=== PATIENT | male | born 1945 | race Caucasian/White ===

== ENCOUNTER 2018-01-27 13:55 | Observation (INO) | payer MEDICARE, OTHER ==
--- NOTE | 2018-01-27 14:39 | EDM.PDOC ---
ED HPI GENERAL MEDICAL PROBLEM - General Chief Complaint: Medication Administration Stated Complaint: Irregular lab values Time Seen by Provider: 01/27/18 14:29 Source of Information: Reports: Patient History Limitations: Reports: No Limitations - History of Present Illness INITIAL COMMENTS - FREE TEXT/NARRATIVE: Patient is a 72-year-old gentleman who presents to the emergency department this afternoon sent via [facility]. Patient found to have elevated INR of 10, and is currently on Coumadin for lung cancer. Patient states she's had nosebleeds to 2 times a day last several days. However, he denies any bleeding while brushing his teeth, in urine, or in stool. Patient denies any recent fall , headache, vision changes, nausea, vomiting, diarrhea, abdominal pain, syncope , change in Coumadin dosage or new medicine. Onset: Today Severity: Moderate Improves with: Reports: None Worsens with: Reports: None Context: Denies: Trauma Associated Symptoms: Reports: No Other Symptoms - Related Data Allergies Allergy/AdvReac Type Severity Reaction Status Date / Time No Known Drug Allergies Allergy Other Verified 01/27/18 14:11 Home Meds: Home Meds Warfarin [Coumadin] 5 mg PO ASDIRECTED 03/17/17 [History] Levothyroxine 100 mcg PO DAILY 05/13/17 [History] Crizotinib [Xalkori] 250 mg PO BID 01/27/18 [History] Lactulose 30 ml PO Q6HR PRN 01/27/18 [History] Past Medical History - Past Health History Medical/Surgical History: Denies Medical/Surgical History HEENT History: Reports: None Cardiovascular History: Reports: Hypertension Respiratory History: Reports: COPD, PE Gastrointestinal History: Reports: None Endocrine/Metabolic History: Reports: Obesity/BMI 30+ Immunologic History: Reports: Immunosuppression Oncologic (Cancer) History: Reports: Lung - Infectious Disease History Infectious Disease History: Reports: Other (See Below) Other Infectious Disease History: cant remember - Past Surgical History HEENT Surgical History: Reports: Tonsillectomy Cardiovascular Surgical History: Reports: None Respiratory Surgical History: Reports: Other (See Below) Other Respiratory Surgeries/Procedures: 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 bilateral PE Endocrine Surgical History: Reports: None Social & Family History - Family History Cardiac: Reports: None Respiratory: Reports: None - Tobacco Use Smoking Status *Q: Former Smoker Years of Tobacco use: 40 Packs/Tins Daily: 0.5 Used Tobacco, but Quit: Yes Month Tobacco Last Used: April 2016 Second Hand Smoke Exposure: Yes - Caffeine Use Caffeine Use: Reports: Soda Other Caffeine Use: regular soda - Alcohol Use Days Per Week of Alcohol Use: 0 - Recreational Drug Use Recreational Drug Use: No ED ROS GENERAL - Review of Systems Review Of Systems: ROS reveals no pertinent complaints other than HPI. Constitutional: Reports: Fatigue HEENT: Reports: Nosebleed Respiratory: Reports: No Symptoms Cardiovascular: Reports: No Symptoms Endocrine: Reports: No Symptoms GI/Abdominal: Reports: No Symptoms : Reports: No Symptoms Musculoskeletal: Reports: No Symptoms Skin: Reports: No Symptoms Neurological: Reports: No Symptoms Psychiatric: Reports: No Symptoms Hematologic/Lymphatic: Reports: No Symptoms Immunologic: Reports: No Symptoms ED EXAM, GENERAL - Physical Exam Exam: See Below Exam Limited By: No Limitations General Appearance: Alert, WD/WN, No Apparent Distress Eye Exam: Bilateral Eye: Normal Inspection Ears: Normal External Exam, Normal Canal Nose: Normal Inspection, Other (Dry blood left Nare) Throat/Mouth: Normal Inspection, Normal Oropharynx, No Airway Compromise Head: Atraumatic, Normocephalic Neck: Normal Inspection Respiratory/Chest: No Respiratory Distress, Lungs Clear, Normal Breath Sounds Cardiovascular: Regular Rate, Rhythm, No Murmur GI/Abdominal: Normal Bowel Sounds, Soft, Non-Tender, No Organomegaly, No Distention, No Abnormal Bruit, No Mass Back Exam: Normal Inspection. No: CVA Tenderness (L), CVA Tenderness (R) Extremities: Normal Inspection, No Pedal Edema Neurological: Alert, Oriented, CN II-XII Intact, Normal Cognition, No Motor/ Sensory Deficits Psychiatric: Normal Affect, Normal Mood Skin Exam: Warm, Dry, Intact, Normal Color, No Rash Course - Vital Signs Last Recorded V/S: Last Vital Signs Temp 96.9 F 01/27/18 14:10 Pulse 65 01/27/18 14:10 Resp 18 01/27/18 14:10 BP 142/49 H 01/27/18 14:10 Pulse Ox 98 01/27/18 14:10 - Orders/Labs/Meds Orders: Active Orders 24 hr Category Date Time Status CBC WITH AUTO DIFF [HEME] Stat Lab 01/27/18 14:29 Ordered COMPREHENSIVE METABOLIC PN,CMP [CHEM] Stat Lab 01/27/18 14:29 Ordered INR,PT,PROTHROMBIN TIME [COAG] Stat Lab 01/27/18 14:30 Ordered PTT,PARTIAL THROMBOPLSTIN TIME [COAG] Stat Lab 01/27/18 14:30 Ordered UA W/MICROSCOPIC [URIN] Stat Lab 01/27/18 14:29 Ordered - Re-Assessments/Exams Free Text/Narrative Re-Assessment/Exam: 01/27/18 15:24 Patient afebrile, nontoxic appearing, vital signs stable, no current bleeding. Discussed case with Dr. Duran. He will admit inpatient and follow. Departure - Departure Time of Disposition: 15:25 Disposition: Admitted As Inpatient 64 Condition: Fair Clinical Impression: Hypercoagulopathy - Discharge Information Referrals: Kennedy Burk MD [Primary Care Provider] - - My Orders Last 24 Hours: My Active Orders 01/27/18 14:29 CBC WITH AUTO DIFF [HEME] Stat COMPREHENSIVE METABOLIC PN,CMP [CHEM] Stat UA W/MICROSCOPIC [URIN] Stat 01/27/18 14:30 INR,PT,PROTHROMBIN TIME [COAG] Stat PTT,PARTIAL THROMBOPLSTIN TIME [COAG] Stat - Assessment/Plan Last 24 Hours: My Active Orders 01/27/18 14:29 CBC WITH AUTO DIFF [HEME] Stat COMPREHENSIVE METABOLIC PN,CMP [CHEM] Stat UA W/MICROSCOPIC [URIN] Stat 01/27/18 14:30 INR,PT,PROTHROMBIN TIME [COAG] Stat PTT,PARTIAL THROMBOPLSTIN TIME [COAG] Stat Assessment:: Hypercoagulopathy Plan: Admission to Dr. Duran
[2018-01-27] MEDS ORDERED: Lactulose Soln 10 GM/15 ML 30 ML UD Cup PO PRN (18:59)
[2018-01-27] MEDS ORDERED: Lactulose Soln 10 GM/15 ML 30 ML UD Cup PO ONE (19:03)
--- NOTE | 2018-01-27 19:59 | HP ---
PATIENT PROFILE: The patient is a 72-year-old patient from [place], [place]. HISTORY OF PRESENT ILLNESS: This very pleasant patient presented to the emergency room with two episodes of epistaxis. He was evaluated in the emergency room, and he was noted to have an extremely high INR of greater than 10. PTT/PT was greater than 170. APTT was 86.2. The patient has been taking chemotherapy for lung cancer. PAST MEDICAL HISTORY: Includes positive hypertension, headache, fatigue, sinusitis, malignant neoplasm of the lung, chemotherapy-induced neutropenia, bilateral pulmonary embolism, long-term use of anticoagulants and antineoplastic immunotherapy, hypothyroidism, and elevated serum creatinine. HEALTH MAINTENANCE: The patient's last colorectal screening was 1992. Lipid screening was 1982. Influenza vaccine was 08/21/2017. Zoster would be given on 03/14/2018. MEDICATIONS: Include levothyroxine 100 mcg tablet daily, warfarin 5 mg daily, crizotinib (Xalkori) 250 mg two times a day, and lactulose as necessary. ALLERGIES: None known. REVIEW OF SYSTEMS: HEAD: No complaints. EYES: No complaints. EARS: No complaints. NOSE: The patient has had two episodes of epistaxis. THROAT: No complaints. NECK: No complaints. HEART: No complaints. LUNGS: No complaints. ABDOMEN: No complaints. NEUROLOGICAL: No complaints. HEMATOLOGICAL: See present history. PHYSICAL EXAMINATION: GENERAL: Reveals a very pleasant elderly gentleman, in no immediate distress. VITAL SIGNS: His height is 5 feet 10 inches, weight is 228 pounds. Pulse oximetry is 97% saturation, temperature 97.3, oxygen saturation is 99%, and pulse rate is 63, blood pressure is 120/68. HEAD: Negative. EYES: Arcus senilis. EARS, NOSE, THROAT: Normal at this time. NECK: Supple. Full range of motion. No midline swellings. HEART: Stable. Regular rhythm. No thrills. No murmurs. LUNGS: Clinically clear to percussion and auscultation. ABDOMEN: Soft. EXTREMITIES: Normal. NEUROLOGIC: Intact. FINAL DIAGNOSIS: 1. Elevated INR to greater than 10, probably due to elevated liver function tests. 2. Malignant neoplasm of the lung, being treated with chemotherapy. 3. Hypertension, stable. 4. Headache, stable. 5. Fatigue, stable. 6. Chemotherapy-induced neutropenia, stable. 7. History of bilateral pulmonary vein embolism, stable. 8. Long-term use of anticoagulants. 9. Antineoplastic immunotherapy. 10.Hypothyroidism, acquired. 11.Elevated creatinine level. PLAN: Give him p.o. vitamin K 5 mg one dose tonight and repeat the dose in the morning. We will also repeat INR in a.m. The patient's Coumadin will be held. Fall precautions are also being taken point. /[id number]/MODL
[2018-01-27] MEDS ORDERED: Phytonadione 5 MG Tab PO ONE (20:15)
[2018-01-28] MEDS: Phytonadione 5 MG Tab PO ONE ×3 (08:38→08:49)
[2018-01-28] MEDS: Levothyroxine 100 MCG Tab PO SCH (08:38)
[2018-01-28] MEDS: Lactulose Soln 10 GM/15 ML 30 ML UD Cup PO PRN ×2 (13:11→21:56)
--- NOTE | 2018-01-28 16:26 | PCM.PN ---
- General Info Date of Service: 01/28/18 Admission Dx/Problem (Free Text): Patient was admitted from the ED. He had initially had an INR obtained in the clinical setting noting it to be above 10. He reports he is taking Coumadin due to history of PE resulting from a neoplasm lung. reported previous INR 3 weeks ago 2.7. patient states he has been taking Coumadin for 1 1/2 years. As of mid November [facility], oral chemotherapy was added to his medication regime. prior to his admission he reports he has had nosebleeds during the night for the past several nights. He has had two nosebleeds during the night and one this AM. All resolved with direct pressure and cool packs to the neck. He denies bleeding with voiding, having stools or brushing his teeth. He has had no emesis and is unaware of any recent injury. He has had no bruising. Functional Status: Reports: Pain Controlled, Tolerating Diet, Ambulating, Other - Review of Systems General: Reports: No Symptoms HEENT: Reports: Other (nosebleeds x 2 during the night. x1 this AM.). Denies: Ear Pain, Sore Throat Pulmonary: Reports: No Symptoms, Other (history lung cancer/PE.) Cardiovascular: Reports: No Symptoms Gastrointestinal: Reports: No Symptoms Genitourinary: Reports: No Symptoms Musculoskeletal: Reports: No Symptoms Skin: Reports: No Symptoms Neurological: Reports: No Symptoms Psychiatric: Reports: No Symptoms - Patient Data Vitals - Most Recent: Last Vital Signs Temp 98.8 F 01/28/18 15:00 Pulse 61 01/28/18 15:00 Resp 20 01/28/18 15:00 BP 110/61 01/28/18 15:00 Pulse Ox 94 L 01/28/18 15:00 Weight - Most Recent: 228 lb 12.8 oz I&O - Last 24 Hours: Intake & Output 01/28/18 01/28/18 01/28/18 06:59 14:59 22:59 Intake Total 300 720 Output Total 0 750 Balance 300 -30 Lab Results Last 24 Hours: Laboratory Results - last 24 hr 01/28/18 01/28/18 Range/Units 07:43 07:43 PT > 170.0 H (8.9-11.4) SEC INR > 10.0 H* (0.9-1.1) Total Bilirubin 3.2 H (0.2-1.0) mg/dL Direct Bilirubin 1.9 H* (0.0-0.2) mg/dL AST 1600 H (15-37) U/L ALT 2858 H (12-78) U/L Alkaline Phosphatase 146 H (46-116) IU/L Total Protein 6.0 L (6.4-8.2) g/dL Albumin 2.17 L (3.00-4.80) g/dL Med Orders - Current: Current Medications Lactulose (Cephulac) 20 gm PO BID PRN PRN Reason: Constipation Last Admin: 01/28/18 13:11 Dose: 20 gm Levothyroxine Sodium (Synthroid) 100 mcg PO ACBREAKFAST NELA Last Admin: 01/28/18 08:38 Dose: 100 mcg Discontinued Medications Lactulose (Cephulac) 20 gm PO Q6HR PRN PRN Reason: Constipation Lactulose (Cephulac) 20 gm PO ONETIME ONE Stop: 01/27/18 19:04 Last Admin: 01/27/18 20:22 Dose: 20 gm Phytonadione (Aquamephyton) 5 mg PO ONETIME ONE Stop: 01/27/18 18:47 Last Admin: 01/27/18 20:22 Dose: 5 mg Phytonadione (Mephyton) 5 mg PO ONETIME ONE Stop: 01/27/18 20:16 Last Admin: 01/27/18 20:26 Dose: Not Given Phytonadione (Mephyton) 5 mg PO ONETIME ONE Stop: 01/28/18 08:21 Last Admin: 01/28/18 08:49 Dose: Not Given Phytonadione (Aquamephyton) 5 mg PO ONETIME ONE Stop: 01/28/18 08:49 Last Admin: 01/28/18 08:39 Dose: 5 mg Phytonadione (Aquamephyton) 5 mg PO NOW ONE Stop: 01/28/18 12:50 Last Admin: 01/28/18 13:11 Dose: 5 mg - Exam General: Alert, Oriented, Cooperative HEENT: Other (resolving epstaxis with direct pressure and ice to posterior neck) Neck: Supple Lungs: Clear to Auscultation Cardiovascular: Regular Rate, Regular Rhythm GI/Abdominal Exam: Normal Bowel Sounds, Soft, Non-Tender (Male) Exam: No Hernia, Normal Inspection, Normal Prostate, Circumcised Back Exam: Normal Inspection, Full Range of Motion Extremities: Non-Tender, No Pedal Edema Skin: Warm, Dry Wound/Incisions: Healing Well Neurological: No New Focal Deficit Psy/Mental Status: Alert, Normal Affect, Normal Mood - Problem List Review Problem List Initiated/Reviewed/Updated: Yes - My Orders Last 24 Hours: My Active Orders 01/28/18 12:20 Lactulose [Cephulac] 20 gm PO BID PRN 01/28/18 20:00 INR,PT,PROTHROMBIN TIME [COAG] Routine 01/29/18 05:11 CBC WITH AUTO DIFF [HEME] Routine CMP [COMPREHENSIVE METABOLIC PN,CMP] [CHEM] Routine - Assessment Assessment:: Assessment and Plan discussed patient status and plan of care as below with Dr. Renee Burk MD. eptastixis due to elevated INR above 10. INR repeated this AM and remains above 10 (received 5 mg Vitamin K yesterday) Receives Coumadin due to history of PE. Vitamin K 5 mg given times 2 this AM. continue to hold coumadin and will repeat INR this evening. Hold Xalkori History of lung cancer. CBC,CMP, INR in the AM. Abnormal liver functions HTN Hypothyroidism. Levothyroxine 100mcg daily.
[2018-01-28] MEDS ORDERED: Phytonadione 5 MG Tab PO ONE (21:22)
[2018-01-29] MEDS: Levothyroxine 100 MCG Tab PO SCH (07:48)
[2018-01-29 08:32] LABS: CHLORIDE,CL 103 mmol/L (98-115); SODIUM,NA 136 mmol/L (136-145)
[2018-01-29 11:53] VITALS: BP 124/60
[2018-01-29] MEDS ORDERED: Phytonadione 5 MG in Sodium Chloride 0.9% 50 ML IV ONE (12:04)
--- NOTE | 2018-01-29 13:21 | PCM.SN ---
- Free Text/Narrative Note: Discharge summary for 01/29/18. Discharge diagnosis. Elevated INR greater than 10 with abnormal liver function tests. History of Coumadin therapy 1-1/2 years due to pulmonary emboli in relation to his lung mass. Hypercoagulopathy History of pneumonia. Brief history/Hospital coarse. This is a 72-year-old male patient who was admitted for hospitalization due to an elevated INR of greater than 10. He initially had been seen in the clinical setting and was routed through the ED for further evaluation and treatment. He was then hospitalized. He reports he has been on Coumadin therapy for 1-1/2 years. He recently was started on an oral chemotherapy medication mid November, Sushila, per oncologist Dr. Ram. Previous to his hospitalization he reports his last INR was 3 weeks ago with a result of 2.7. As of Tuesday he presented to the clinic for an INR recheck due to having nosebleeds during the nighttime hours for the previous several nights. He denied having any hematuria, blood in his stools or emesis. He noted no increased bruising or discoloration of his skin and he noted no bleeding of the gum lines with teeth brushing. During the course of his hospitalization he did receive vitamin K. Tuesday he was given 5 mg oral and on Tuesday a total of 15 mg oral. His INR remained elevated. Liver functions were abnormal. On admit total bilirubin was 3.3 with a follow- up being 3.2. Direct bilirubin is 1.9. AST on admission 1820 with the following follow-ups 1600, 1256. ALT on admission was 366. Follow-up readings 2858 and 2706. Alkaline phosphatase readings 162, 146 and 131. Albumin 2.38, 2.17 and 2.00. During hospital course patient did experience nosebleeds on Tuesday and Tuesday morning. No further bleeding reported save for a trickle during the night. Dr. Renee Burk MD has been consulted during the coarse of the patient's [facility] stay. Refer to printed medication packet. Complications. Patient has been unresponsive to the vitamin K medication. Labs and diagnostics. Refer to above follow liver tests. CT scan,chest was obtained as previously ordered by patient's oncologist . Impression indicated significant improvement overall Consults. Dr. Hinds, oncology consulted per phone today in regards to patient's status and condition/lab results and CT results. Physician requested 5 mg of vitamin K to be given IV with follow-up lab work at 4 PM. Post phone consult I did receive a call back from [facility] with the physicians request for transfer to [facility] for further evaluation and treatment. Physical exam Vital signs today. 124/60, 97 3, 67 and 20. O2 sat is 95%. General; alert and oriented. H EENT; head is normocephalic, conjunctiva clear, no nasal drainage or bleeding at present. Respiratory; lung sounds clear to auscultation. Cardiovascular; heart rate and rhythm is regular S1-S2. Extremities; no lower extremity edema. Skin; warm and dry to touch. Discharge plan. Patient will be discharged in care of ambulance services to [facility]. Dr. Hinds, oncology has agreed to accept the patient for further care.
== END 2018-01-29 13:30 ==
LOC: KA.ED 13:55 → KA.MS 15:26 → INTOOBSV 15:26 → UNDODISIN 01-29 13:30
PROVIDERS: ADMIT Physician Assistant Surgical; ATTEND Family Medicine
DX: R79.1 Abnormal coagulation profile (principal); D68.59 Other primary thrombophilia; I10 Essential (primary) hypertension; C34.90 Malignant neoplasm of unspecified part of unspecified bronchus or lung; E03.9 Hypothyroidism, unspecified; R51 Headache; D70.1 Agranulocytosis secondary to cancer chemotherapy; T45.1X5A Adverse effect of antineoplastic and immunosuppressive drugs, initial encounter; R79.89 Other specified abnormal findings of blood chemistry; J44.9 Chronic obstructive pulmonary disease, unspecified; E66.9 Obesity, unspecified; Z79.01 Long term (current) use of anticoagulants; Z79.899 Other long term (current) drug therapy; Z86.711 Personal history of pulmonary embolism; Z68.30 Body mass index [BMI] 30.0-30.9, adult; Z87.891 Personal history of nicotine dependence
CPT/HCPCS: 71250; 80053; 80076; 81001; 85025; 85610; 85730; 99284; A9270; J3430; J7050

== ENCOUNTER 2023-11-25 19:57 | Emergency (ER) | payer MEDICARE, OTHER ==
[2023-11-25 20:54] LABS: BASOPHILS ABSOLUTE AUTO 0.02 10^3/uL (0.00-0.10); BASOPHILS PERCENT AUTO 0.3 % (0.0-1.0); EOSINOPHILS ABSOLUTE AUTO 0.26 10^3/uL (0.10-0.30); EOSINOPHILS PERCENT AUTO 3.9 % (1.0-3.0); HEMATOCRIT 41.9 % (40.0-52.0); HEMOGLOBIN 13.5 g/dL (13.0-17.0); IMMATURE GRAN ABSOLUTE AUTO 0.01 10^3/uL (0.00-0.50); IMMATURE GRAN PERCENT AUTO 0.1 % (0.0-5.0); LYMPHOCYTES ABSOLUTE AUTO 0.99 10^3/uL (1.00-4.00); LYMPHOCYTES PERCENT AUTO 14.7 % (20.0-40.0); MEAN CORPUSCULAR HEMOGLOBIN 28.7 pg (27.0-31.0); MEAN CORPUSCULAR HGB CONC 32.2 g/dL (32.0-36.0); MONOCYTES ABSOLUTE AUTO 0.77 10^3/uL (0.10-0.80); MONOCYTES PERCENT AUTO 11.4 % (2.0-8.0); NEUTROPHILS ABSOLUTE AUTO 4.68 10^3/uL (2.50-7.00); NEUTROPHILS PERCENT AUTO 69.6 % (50.0-70.0); PLATELET COUNT,PLT 203 10^3/uL (150-400); RED BLOOD CELL COUNT 4.71 10^6/uL (4.50-6.00); RED CELL DISTRIBUTION WIDTH 14.9 % (11.5-14.5); WHITE BLOOD CELL COUNT,WBC 6.73 10^3/uL (5.00-10.00)
[2023-11-25 20:57] LABS: ALBUMIN 3.61 g/dL (3.40-5.00); ANION GAP 12.3 mmol/L (5-15); BILIRUBIN TOTAL 0.4 mg/dL (0.2-1.0); CALCIUM 9.2 mg/dL (8.7-10.3); CARBON DIOXIDE,CO2 28.6 mmol/L (21.0-32.0); CREATININE 1.18 mg/dL (0.51-1.17); EST CRCL DRUG DOSING (CG) 51.55 mL/min; POTASSIUM,K 3.9 mmol/L (3.5-5.1); PROTEIN TOTAL,TP 7.9 g/dL (6.4-8.2)
[2023-11-25 20:59] LABS: INR 2.4 (0.9-1.1); PROTHROMBIN TIME 22.6 SEC (9.2-11.2); PTT,PARTIAL THROMBOPLSTIN TIME 36.3 SEC (22.8-31.4)
[2023-11-25] MEDS: Labetalol 100 MG/20 ML MDV IVPUSH ONE (21:00)
[2023-11-25] MEDS ORDERED: Factor IX Complex Human 1,000 UNIT VIAL IV STA (21:05)
[2023-11-25] MEDS: niCARdipine/Normal Saline 20 MG in Premix Bag 1 BAG IV SCH (21:24)
[2023-11-25] MEDS: Ondansetron 4 MG/2 ML SDV IVPUSH ONE (21:30)
[2023-11-25] MEDS: Factor IX Complex Human 1,000 UNIT VIAL IV ONE (21:45)
[2023-11-25] MEDS ORDERED: Factor IX Complex Human 1,000 UNIT VIAL IV SCH (21:45)
[2023-11-25] MEDS: Ondansetron 4 MG/2 ML SDV ONE ×2 (22:08→22:09)
[2023-11-25 22:24] VITALS: BP 155/104; PULSE 83
== END 2023-11-25 22:00 ==
LOC: KA.ED 19:57
DX: I67.9 Cerebrovascular disease, unspecified (principal); I10 Essential (primary) hypertension; J44.9 Chronic obstructive pulmonary disease, unspecified; R29.810 Facial weakness; I26.99 Other pulmonary embolism without acute cor pulmonale; E66.9 Obesity, unspecified; E03.9 Hypothyroidism, unspecified; Z68.34 Body mass index [BMI] 34.0-34.9, adult; Z79.01 Long term (current) use of anticoagulants
CPT/HCPCS: 70450; 80053; 83880; 84484; 85025; 85610; 85730; 93005; 93010; 96365; 96375; 99284; 99291-25; J1921; J2405; J3490; J7168; Q3014

== ENCOUNTER 2024-02-12 16:21 | Emergency (ER) | payer MEDICARE, OTHER ==
[2024-02-12] MEDS: Sodium Chloride 0.9% 1,000 ML IV ONE (16:50)
[2024-02-12] MEDS: Sodium Chloride 0.9% 1,000 ML ONE (16:50)
[2024-02-12 17:15] LABS: ALANINE AMINOTRANSFERASE,ALT 12 U/L (14-63); ALKALINE PHOSPHATASE 67 U/L (46-116); ASPARTATE AMNIOTRANSFERASE,AST 13 U/L (15-37); BILIRUBIN TOTAL 1.1 mg/dL (0.2-1.0); BLOOD UREA NITROGEN,BUN 17 mg/dL (7-18); CARBON DIOXIDE,CO2 26.7 mmol/L (21.0-32.0); CHLORIDE,CL 99 mmol/L (98-107); CREATININE 1.33 mg/dL (0.51-1.17); ESTIMATED GFR 54 mL/min (>=60); GLUCOSE RANDOM 119 mg/dL (70-140); POTASSIUM,K 3.7 mmol/L (3.5-5.1); PROTEIN TOTAL,TP 6.9 g/dL (6.4-8.2); SODIUM,NA 136 mmol/L (136-145)
[2024-02-12 17:27] LABS: BASOPHILS ABSOLUTE AUTO 0.01 10^3/uL (0.00-0.10); BASOPHILS PERCENT AUTO 0.1 % (0.0-1.0); EOSINOPHILS ABSOLUTE AUTO 0.01 10^3/uL (0.10-0.30); EOSINOPHILS PERCENT AUTO 0.1 % (1.0-3.0); HEMATOCRIT 38.8 % (40.0-52.0); HEMOGLOBIN 12.8 g/dL (13.0-17.0); IMMATURE GRAN ABSOLUTE AUTO 0.05 10^3/uL (0.00-0.50); IMMATURE GRAN PERCENT AUTO 0.3 % (0.0-5.0); LYMPHOCYTES ABSOLUTE AUTO 0.68 10^3/uL (1.00-4.00); LYMPHOCYTES PERCENT AUTO 3.8 % (20.0-40.0); MEAN CORPUSCULAR HEMOGLOBIN 29.2 pg (27.0-31.0); MEAN CORPUSCULAR VOLUME 88.4 fL (82.0-92.0); MONOCYTES ABSOLUTE AUTO 1.02 10^3/uL (0.10-0.80); MONOCYTES PERCENT AUTO 5.7 % (2.0-8.0); NEUTROPHILS ABSOLUTE AUTO 16.04 10^3/uL (2.50-7.00); PLATELET COUNT,PLT 164 10^3/uL (150-400); RED BLOOD CELL COUNT 4.39 10^6/uL (4.50-6.00); RED CELL DISTRIBUTION WIDTH 14.6 % (11.5-14.5); WHITE BLOOD CELL COUNT,WBC 17.81 10^3/uL (5.00-10.00)
[2024-02-12 17:53] LABS: INR 2.7 (0.9-1.1); PROTHROMBIN TIME 27.9 SEC (9.3-12.2)
[2024-02-12 18:19] LABS: APPEARANCE,URINE CLOUDY (CLEAR); BILIRUBIN,URINE NEGATIVE (NEGATIVE); COLOR,URINE YELLOW (YELLOW); GLUCOSE,URINE NEGATIVE (NEGATIVE); KETONES,URINE 15 mg/dL (NEGATIVE); LEUKOCYTE ESTERASE,URINE SMALL (NEGATIVE); NITRITE,URINE POSITIVE (NEGATIVE); OCCULT BLOOD,URINE TRACE-LYSED (NEGATIVE); PH,URINE 5.5 (5.0-9.0); PROTEIN,URINE 30 mg/dL (NEGATIVE)
[2024-02-12 18:26] LABS: BACTERIA,URINE MANY /HPF (NONE TO FEW); EPITHELIAL CELLS,URINE RARE /LPF; MUCUS,URINE FEW /LPF (NEGATIVE); RBC,URINE 0-5 /HPF (0-5)
[2024-02-12] MEDS: cefTRIAXone 1 GM Vial IVPUSH ONE (18:50)
[2024-02-12 21:19] VITALS: BP 116/56; PULSE 74
== END 2024-02-12 19:05 | disposition home or self-care (01) ==
LOC: KA.ED 16:21
DX: N39.0 Urinary tract infection, site not specified (principal); J44.9 Chronic obstructive pulmonary disease, unspecified; E03.9 Hypothyroidism, unspecified; E66.9 Obesity, unspecified; I10 Essential (primary) hypertension; Z68.33 Body mass index [BMI] 33.0-33.9, adult; Z79.01 Long term (current) use of anticoagulants; Z79.899 Other long term (current) drug therapy
CPT/HCPCS: 71045; 80053; 81001; 85025; 85610; 87086; 87088; 87186; 93005; 93010; 96361; 96374; 99284; 99285-25; J0696; J7030

== ENCOUNTER 2025-05-13 10:42 | Observation (INO) | payer MEDICARE, OTHER ==
[2025-05-13] MEDS ORDERED: Sodium Chloride 0.9% 10 ML Syringe FLUSH PRN (10:47)
[2025-05-13 11:06] LABS: BASOPHILS ABSOLUTE AUTO 0.02 10^3/uL (0.00-0.10); BASOPHILS PERCENT AUTO 0.3 % (0.0-1.0); EOSINOPHILS ABSOLUTE AUTO 0.24 10^3/uL (0.10-0.30); EOSINOPHILS PERCENT AUTO 3.4 % (1.0-3.0); HEMATOCRIT 30.3 % (40.0-52.0); HEMOGLOBIN 9.3 g/dL (13.0-17.0); LYMPHOCYTES ABSOLUTE AUTO 0.71 10^3/uL (1.00-4.00); LYMPHOCYTES PERCENT AUTO 10.1 % (20.0-40.0); MEAN CORPUSCULAR HEMOGLOBIN 25.1 pg (27.0-31.0); MEAN CORPUSCULAR HGB CONC 30.7 g/dL (32.0-36.0); MEAN CORPUSCULAR VOLUME 81.9 fL (82.0-92.0); MEAN PLATELET VOLUME 10.3 fL (7.4-10.4); MONOCYTES ABSOLUTE AUTO 0.58 10^3/uL (0.10-0.80); MONOCYTES PERCENT AUTO 8.2 % (2.0-8.0); NEUTROPHILS ABSOLUTE AUTO 5.51 10^3/uL (2.50-7.00); PLATELET COUNT,PLT 195 10^3/uL (150-400); RED CELL DISTRIBUTION WIDTH 14.4 % (11.5-14.5); WHITE BLOOD CELL COUNT,WBC 7.06 10^3/uL (5.00-10.00)
[2025-05-13 11:27] LABS: ALBUMIN 3.16 g/dL (3.40-5.00); ANION GAP 13.7 mmol/L (5-15); BILIRUBIN TOTAL 0.7 mg/dL (0.2-1.0); CALCIUM 9.1 mg/dL (8.7-10.3); CARBON DIOXIDE,CO2 25.9 mmol/L (21.0-32.0); CREATININE 1.28 mg/dL (0.51-1.17); EST CRCL DRUG DOSING (CG) 46.73 mL/min; MAGNESIUM 1.8 mg/dL (1.8-2.4); POTASSIUM,K 4.6 mmol/L (3.5-5.1); PROTEIN TOTAL,TP 6.8 g/dL (6.4-8.2)
[2025-05-13] MEDS: Lactated Ringers 1,000 ML IV SCH (11:33)
[2025-05-13 11:34] LABS: PROTHROMBIN TIME 19.5 SEC (9.1-12.0); PTT,PARTIAL THROMBOPLSTIN TIME 28.1 SEC (21.6-32.4)
[2025-05-13] MEDS: Iopamidol 755 Mg/ML 100 ML Bottle IV ONE (13:36)
[2025-05-13] MEDS: Sodium Chloride 0.9% 50 ML IV SCH (13:37)
[2025-05-13] MEDS ORDERED: Acetaminophen 325 MG Tab PO PRN (14:28)
[2025-05-13] MEDS ORDERED: Ondansetron 4 MG Tab.DIS PO PRN (14:28)
[2025-05-13 14:57] LABS: T4 FREE 1.37 ng/dL (0.76-1.46); TSH ULTRASENSITIVE 0.895 uIU/mL (0.340-4.820)
[2025-05-14] MEDS: Levothyroxine 112 MCG Tab PO SCH (05:52)
[2025-05-14] MEDS: Levothyroxine 25 MCG Tab PO SCH (05:52)
[2025-05-14 07:23] LABS: BASOPHILS ABSOLUTE AUTO 0.03 10^3/uL (0.00-0.10); BASOPHILS PERCENT AUTO 0.5 % (0.0-1.0); EOSINOPHILS ABSOLUTE AUTO 0.31 10^3/uL (0.10-0.30); EOSINOPHILS PERCENT AUTO 5.1 % (1.0-3.0); HEMATOCRIT 31.5 % (40.0-52.0); HEMOGLOBIN 9.6 g/dL (13.0-17.0); IMMATURE GRAN ABSOLUTE AUTO 0.01 10^3/uL (0.00-0.04); IMMATURE GRAN PERCENT AUTO 0.2 % (0.0-0.4); LYMPHOCYTES ABSOLUTE AUTO 0.88 10^3/uL (1.00-4.00); LYMPHOCYTES PERCENT AUTO 14.4 % (20.0-40.0); MEAN CORPUSCULAR HEMOGLOBIN 25.1 pg (27.0-31.0); MEAN CORPUSCULAR HGB CONC 30.5 g/dL (32.0-36.0); MEAN CORPUSCULAR VOLUME 82.2 fL (82.0-92.0); MONOCYTES ABSOLUTE AUTO 0.59 10^3/uL (0.10-0.80); MONOCYTES PERCENT AUTO 9.7 % (2.0-8.0); NEUTROPHILS ABSOLUTE AUTO 4.29 10^3/uL (2.50-7.00); NEUTROPHILS PERCENT AUTO 70.1 % (50.0-70.0); PLATELET COUNT,PLT 188 10^3/uL (150-400); RED BLOOD CELL COUNT 3.83 10^6/uL (4.50-6.00); RED CELL DISTRIBUTION WIDTH 14.5 % (11.5-14.5); WHITE BLOOD CELL COUNT,WBC 6.11 10^3/uL (5.00-10.00)
[2025-05-14 07:43] LABS: ALBUMIN 3.31 g/dL (3.40-5.00); ANION GAP 14.8 mmol/L (5-15); BILIRUBIN TOTAL 0.5 mg/dL (0.2-1.0); CALCIUM 9.1 mg/dL (8.7-10.3); CARBON DIOXIDE,CO2 26.3 mmol/L (21.0-32.0); CREATININE 1.08 mg/dL (0.51-1.17); EST CRCL DRUG DOSING (CG) 55.39 mL/min; MAGNESIUM 1.9 mg/dL (1.8-2.4); POTASSIUM,K 4.1 mmol/L (3.5-5.1); PROTEIN TOTAL,TP 7.2 g/dL (6.4-8.2)
[2025-05-14 07:44] LABS: PROTHROMBIN TIME 19.5 SEC (9.1-12.0)
[2025-05-14] MEDS ORDERED: LEVOTHYROXINE SODIUM 137 MCG PO SCH (09:00)
[2025-05-14] MEDS: amLODIPine 5 MG Tab PO SCH (10:22)
[2025-05-14 11:15] VITALS: BP 142/57; PULSE 65
[2025-05-14] MEDS ORDERED: Warfarin** 1 MG TABLET PO SCH (18:00)
[2025-05-17] MEDS ORDERED: Warfarin 2 MG Tab PO SCH (18:00)
== END 2025-05-14 11:32 | disposition home or self-care (01) ==
LOC: KA.ED 10:42 → KA.MS 12:30
PROVIDERS: ADMIT Internal Medicine; ATTEND Internal Medicine
DX: R55 Syncope and collapse (principal); R00.1 Bradycardia, unspecified; C34.90 Malignant neoplasm of unspecified part of unspecified bronchus or lung; E03.9 Hypothyroidism, unspecified; I12.9 Hypertensive chronic kidney disease with stage 1 through stage 4 chronic kidney disease, or unspecified chronic kidney disease; N18.30 Chronic kidney disease, stage 3 unspecified; E66.9 Obesity, unspecified; Z86.711 Personal history of pulmonary embolism; Z79.01 Long term (current) use of anticoagulants; Z79.899 Other long term (current) drug therapy; Z79.890 Hormone replacement therapy; Z68.30 Body mass index [BMI] 30.0-30.9, adult; Z87.891 Personal history of nicotine dependence
CPT/HCPCS: 36415; 70450; 71045; 71275; 80053; 83605; 83735; 84439; 84443; 84484; 85025; 85379; 85610; 85730; 93010; 96360; 96361; 99223-GT; 99239-GT; 99284; 99285-25; A9270-GY; G0378; J7120; Q3014; Q9967